=== PATIENT | female | born 1985 | race Caucasian/White ===

== ENCOUNTER → 2020-05-31 | Outpatient (CLI) | payer OTHER ==
[~2020-05-31] MED LIST: CITA20TA6 PO; LISI10TA2 PO; METO50TA6 PO
== END ==
LOC: SURGPAT 12:12
PROVIDERS: ATTEND Obstetrics & Gynecology
DX: Z01.812 Encounter for preprocedural laboratory examination (principal); Z20.828 Contact with and (suspected) exposure to other viral communicable diseases
CPT/HCPCS: U0003

== ENCOUNTER 2020-06-05 06:09 | Observation (INO) | payer OTHER ==
[2020-06-05] VITALS (14 sets, daily range): BP systolic 104–128; BP diastolic 56–93
[~2020-06-05] VITALS: Ht 170.2 cm; Wt 91.8 kg
[~2020-06-05 06:09] MED LIST changes: +BUPIVACAINE-EPI 0.25%-1:200000 MPF 30 ML VIAL. INJ ONE; +ceFAZolin SODIUM IV Push 1 GM VIAL. IVP PRN
[2020-06-05] MEDS ORDERED: SCOPOLAMINE 1.5MG PATCH. TD ONE (06:30)
[2020-06-05] MEDS ORDERED: PROCHLORPERAZINE 10 MG/2 ML VIAL. IV PRN (07:00)
[2020-06-05] MEDS ORDERED: IV RINGERS,LACTATED 1000ML 1,000 ML IV SCH (07:00)
[2020-06-05] MEDS ORDERED: HYDROmorphone 2 MG/ML VIAL IV PRN (07:00)
[2020-06-05] MEDS ORDERED: ONDANSETRON PF 4 MG/2 ML VIAL. IV PRN ×2 (07:00→10:15)
[2020-06-05] MEDS ORDERED: LIDOCAINE 1% PF 2 ML VIAL. ID PRN (07:00)
[2020-06-05] MEDS ORDERED: fentaNYL PF VIAL 100 MCG/2 ML VIAL IV PRN (07:00)
[2020-06-05] MEDS ORDERED: INDIGOTINDISULFONATE SODIUM 40 MG/5 ML AMPUL. ONE (07:09)
[2020-06-05] MEDS ORDERED: ESTROGENS, CONJ VAGINAL CREAM 30GM TUBE. ONE (07:09)
[2020-06-05] MEDS ORDERED: PROPOFOL 10 MG/ML (20ML) VIAL. IV ONE ×2 (07:13→09:34)
[2020-06-05] MEDS ORDERED: LIDOCAINE 1% PF 5 ML VIAL. ONE (07:13)
[2020-06-05] MEDS ORDERED: ROCURONIUM 100 MG/10 ML VIAL. ONE (07:13)
[2020-06-05] MEDS ORDERED: fentaNYL PF VIAL 100 MCG/2 ML VIAL ONE ×3 (07:13→10:34)
[2020-06-05] MEDS ORDERED: MIDAZOLAM HCL/PF 2 MG/2 ML VIAL. ONE (07:13)
[2020-06-05] MEDS ORDERED: diphenhydrAMINE 50 MG/ML VIAL ONE (07:15)
[2020-06-05] MEDS ORDERED: FAMOTIDINE 20 MG/2 ML VIAL ONE (07:15)
[2020-06-05] MEDS ORDERED: NEOSTIGMINE METHYLSULFATE 5 MG/5 ML SYRINGE. ONE (09:07)
--- NOTE | 2020-06-05 10:05 | PDOC ---
BRIEF OPERATIVE NOTE Date: Jun 05, 2020 Pre-Op Diagnosis Pelvic pain, endometriosis Post-Op Diagnosis same Procedure Performed LAVH/RSO/left salpingectomy/vapo endometriosis left sidewall above ureter Surgeon Dr. Varner Cutter Inspector MARY Hampton Anesthesiologist Dr. Savage Anesthesia Type: General Blood Loss 200cc IV Fluid 750cc Urine Output 150cc clear via sanabria Specimens Obtained cervix, uterus, right tube and ovary, left tube Findings mild adhesive disease, endometriosis on left sidewall above ureter, mildly enlarged right ovary, mildly enlarged RV uterus Complications none Operative Note [id number] MARIS VARNER MD Jun 05, 2020 10:05
[2020-06-05] MEDS ORDERED: NALOXONE 0.4 MG/ML VIAL. IV PRN (10:15)
[2020-06-05] MEDS ORDERED: diphenhydrAMINE HCL 25 MG CAPSULE PO PRN (10:15)
[2020-06-05] MEDS ORDERED: ZOLPIDEM 5 MG TABLET. PO PRN (10:15)
[2020-06-05] MEDS ORDERED: 0.9 % SODIUM CHLORIDE 10 ML DISP.SYRIN. IV PRN (10:15)
[2020-06-05] MEDS ORDERED: MAG HYDROX/ALUMINUM HYD/SIMETH 30 ML ORAL.SUSP PO PRN (10:15)
[2020-06-05] MEDS ORDERED: CALCIUM CARBONATE 500 MG TAB.CHEW PO PRN (10:15)
[2020-06-05] MEDS ORDERED: diphenhydrAMINE 50 MG/ML VIAL IV PRN (10:15)
[2020-06-05] MEDS ORDERED: LACTULOSE 20 GM/30 ML SOLUTION. PO PRN (10:15)
[2020-06-05] MEDS ORDERED: MAGNESIUM HYDROXIDE 2,400 MG/30 ML ORAL.SUSP. PO PRN (10:15)
[2020-06-05] MEDS: fentaNYL PF VIAL 100 MCG/2 ML VIAL IV PRN ×2 (10:37→12:04)
--- NOTE | 2020-06-05 11:05 | OP ---
DATE OF SURGERY: 06/05/2020 PREOPERATIVE DIAGNOSIS: Known endometriosis and pelvic pain, especially right-sided. POSTOPERATIVE DIAGNOSIS: Known endometriosis and pelvic pain, especially right-sided. PROCEDURE: Laparoscopic-assisted vaginal hysterectomy, right salpingo-oophorectomy, left salpingectomy and vaporization of endometriosis on the left sidewall above the ureter. SURGEON: Maris Varner MD RESEARCH AIDE: MARY Charles. ANESTHESIA: General. ANESTHESIOLOGIST: Dr. Savage. ESTIMATED BLOOD LOSS: 200 mL. URINE OUTPUT: 150 mL, clear via Chris catheter. INTRAVENOUS FLUIDS: 750 mL of Crystalloid. SPECIMENS: Cervix, uterus, right tube and ovary and left tube. FINDINGS: She had mild adhesive disease, endometriosis on the left sidewall above the ureter and a mildly enlarged right ovary and a mildly enlarged retroverted uterus. COMPLICATIONS: None. DESCRIPTION OF PROCEDURE: This patient was taken to the operating room where general anesthesia was placed. The patient was placed in dorsal lithotomy position in Tu stirrups. The patient's abdomen and vagina were both prepped and draped in the normal sterile fashion and a Chris catheter had been inserted under sterile technique. Upon my arrival, a timeout was performed. Once everyone agreed on the patient, the site, the procedure, the antibiotics, the procedure was initiated. A bivalve speculum was placed in the patient's vagina. A single-tooth tenaculum was used to grasp the anterior lip of the cervix, 0.25% Marcaine with epinephrine was used to circumferentially inject around the cervix for both hemodissection and hemostatic purposes later, 12 mL were used here. At this point, top gloves were discarded and changed and attention was turned to the abdomen. Attention was then turned to the abdomen where a small infraumbilical skin incision was made with the scalpel over the existing scar. Prior to putting the incision and it was injected with again that 0.25% Marcaine with epinephrine. Incision was made. The Visiport was used to directly enter the abdominal cavity. Opening patient pressure was 3-4 mmHg. Carbon dioxide gas was used to then appropriately insufflate the abdominal cavity to maintain a pressure of 15 mmHg. The patient was placed in Trendelenburg. Right and left lower quadrant ports were placed. The right side already had an incision. So it was clear on the inside, so local was used and a small incision was made. The disposable 5 mm atraumatic trocar was placed under direct visualization on the right over this one. The left one transilluminating the abdominal wall, finding an area clear of any vasculature, injecting making a small incision and then placing the trocar in under direct visualization, 4-5 mL of air was used in this cuff. Then, the camera was moved laterally. The umbilical and the right lower quadrant ports were also insufflated with 4-5 mL of air in the trocar cuff. Once this was done and they were in good placement, an initial inspection of the abdomen revealed a normal right upper quadrant, mild scarring on the right lower quadrant where the appendix was, mild scarring in the left lower quadrant of the bowel above the IP ligament. She did have a large endometrial implant on the left sidewall, but it was above the left ureter and could clearly be seen. So the monopolar hook was used to cauterize this lesion and brown fluid did come out of the endometrial implant that the ureter could be seen peristalsing beneath it. At this point, the left tube and ovary were elevated. She wished to retain her left ovary. So, going above the ovary, below the tube, doing a salpingectomy with her prior tubal ligation. The distal segment of the tube did detach and it was pulled out separately. Then, crossing the left uteroovarian pedicle, cauterizing and cutting, again leaving the left ovary per patient request and going through the left round ligament. The right side, the right tube and ovary were elevated, finding the ureter coursing low in the pelvis, very clearly staying high on the infundibulopelvic ligament under the ovary, taking the right ovary where all her pain as per patient request. Cauterizing and cutting with the LigaSure, going over and going through the right round ligament as well. The uterus was pushed cephalad to the head. The atraumatic graspers were used to gently elevate the bladder flap. The [place] on was used to elevate the bladder and then the monopolar hook was used to sharply incise and create the bladder flap sharply and then it was gently pulled down. Once it was down, the uterine vessels were obtained on both sides and then staying inside that pedicle going down through the cardinal and broad ligaments with the LigaSure, on both sides this was done. Making sure the bladder was down all the way. The posterior area was clear. The bladder came down nicely. Everything was skeletonized on this side, staying inside that pedicle of the uterine vessels and the uterus was completely free and blanched, so everything was removed from the abdomen and attention was turned vaginally. The single tooth and the Valtchev were removed. A weighted speculum was placed in the patient's vagina. Thyroid Daksha clamps were placed on the anterior and posterior lips of the cervix respectively. A scalpel was used to make a circumferential incision in the cervix. Open Ray-Michoacano 4 x 4 was used to gently push up the anterior bladder peritoneum. The cervix was elevated and the posterior cul-de-sac was sharply entered with the curved Logan scissors. A #0 Vicryl stitch was used to secure the posterior peritoneum here to the vaginal cuff, was tagged with a curved Norma clamp. The needle was cut and passed off. The short weighted speculum was removed and replaced with the long weighted Carroll speculum in the posterior cul-de-sac. Curved Jodi clamps x 2 were placed on the patient's left uterosacral ligament where they were doubly clamped with curved Heaneys, cut with curved Logan scissors and suture ligated x 2 with 0 Vicryl. Second one was taken through the vaginal cuff securing uterosacral ligament to the vaginal cuff, tagged with a straight Norma clamp and the needle was cut and passed off. This was done exactly the same on the left side, double clamping the uterosacrals with curved Jodi's, cutting with curved Logan scissors, suture ligating x 2 with 0 Vicryl, taking the second one through the vaginal cuff, tagging it with a straight Norma clamp, cutting and passing the needle off. Prior to doing the right uterosacral, I was able to get in anteriorly and put the curved Jase in anteriorly and I pulled that open Ray-Michoacano 4 x 4 out and we were in and once we did this, I was able to get across the whole way. So, a right angle clamp just to delineate the pedicle on the right side that was left and the vaginal LigaSure was used to cauterize and cut the remaining pedicle on the right side. The entire right side was free at this point. This was done exactly the same on the left, taking the right angle clamp around the remaining pedicle to show it and then using the vaginal LigaSure to cauterize and cut the remaining pedicle. Once this was done, the cervix, uterus, right tube and ovary were delivered in total, remember the left tube had already been removed and pulled out separately. Once this was done, a sponge stick was used to examine the pedicles. There was some bleeding on the left side that a burlisher was placed in with a #2-0 Vicryl stitch with excellent results. The remaining pedicles looked hemostatic, all the clots were cleared from the posterior cul-de-sac. The long Carroll speculum was removed and replaced with the short weighted vaginal speculum. Everything appeared to be hemostatic at this point, so the long Allis was used to grasp the anterior bladder peritoneum and 2-0 Vicryl was taken through the anterior bladder peritoneum, left uterosacral ligament, posterior peritoneum and right uterosacral ligament, thus closing the peritoneum in a pursestring like fashion. Once this was done, the right and left uterosacral tags were clipped as well. A full length 2-0 Vicryl was obtained and the cuff was closed in an anterior to posterior running locked fashion and tied to the posterior cuff. An interrupted stitch was just placed in the middle for hemostasis and security. Once this was done, sponge stick was used to examine the vaginal cuff and it was completely dry. At this point, all instruments had been counted x 2 by OR personnel and were correct. So, all gloves were discarded and changed and attention was turned back above for a second look. Gas was reinsufflated. Lights were dimmed. The patient was placed back in Trendelenburg. Copious irrigation revealed hemostasis. Tisseel was placed over the pedicles with excellent results. There was nothing pulling in the posterior cul-de-sac or either of the pericolic right or left pericolic gutters, everything was dry. So, the gas was released from the abdomen. The right and left lower quadrant trocar cuffs were deflated and taken out under direct visualization. These too were hemostatic. Gas was released from the umbilical port. One last look did reveal hemostasis in the cul-de-sac, so once the gas was out, it was removed as well. All three port sites were closed with 4-0 nylon at the skin. The patient was awakened from anesthesia and is currently being brought to recovery room in stable condition. MARIS VARNER MD DR: JESSICA/reinier JOB#: [id number] / [id number]
[2020-06-05] MEDS: IBUPROFEN 400 MG TABLET. PO PRN ×2 (13:25→21:28)
[2020-06-05] MEDS: HYDROcodone/APAP 5/325MG 1 TAB TABLET PO PRN ×3 (13:25→21:28)
[2020-06-05] MEDS: SIMETHICONE 80 MG TAB.CHEW PO PRN ×2 (13:37→14:03)
--- NOTE | 2020-06-05 16:35 | NUR ---
Pt voided 100c urine but felt like she didn't empty her bladder. Bladder scan done and pt had 192 ml in bladder. Will continue to monitor.
[2020-06-06] MEDS: HYDROcodone/APAP 5/325MG 1 TAB TABLET PO PRN ×2 (02:10→08:23)
[2020-06-06 02:22] VITALS: BP 100/60
[2020-06-06 06:23] VITALS: BP 108/70
[2020-06-06 06:47] LABS: CALCIUM 8.8 mg/dL (8.5-10.1); GFR 63.9; POTASSIUM 4.2 mmol/L (3.5-5.1)
[2020-06-06] MEDS: IBUPROFEN 400 MG TABLET. PO PRN (07:22)
[2020-06-06 07:45] VITALS: BP 122/68
--- NOTE | 2020-06-06 08:08 | PDOC ---
SURGICAL PROGRESS NOTE DATE: 06/06/20 TIME: 07:51 Subjective Doing well without complaints. Voiding, tolerating regular diet and ambulating well. Wants go home. Just mildly sore Vital Signs Vital Signs Date Time Temp Pulse Resp B/P (MAP) Pulse Ox O2 Delivery O2 Flow Rate FiO2 06/06/20 06:23 97.6 66 16 108/70 (83) 97 97.6 06/06/20 03:10 Room Air 06/06/20 02:10 8.0 I&O Intake and Output 06/06/20 07:00 Intake Total 2290 ml Output Total 1400 ml Balance 890 ml Intake Oral 640 ml IV Total 1650 ml Output Urine Total 1200 ml Estimated Blood Loss 200 ml PATIENT HAS A VITALE: No General: Alert, Oriented X3, Cooperative, No acute distress HEENT: Atraumatic Heart: Regular rate Abdomen: Soft, No tenderness, Other (port sites c/d/i) Extremities: No clubbing, No cyanosis, No edema, No tenderness/swelling Neuro: Normal speech Psych/Mental Status: Mental status NL, Mood NL Labs Laboratory Tests Test 06/05/20 06:21 06/06/20 06:05 Bedside Urine HCG, Qualitative Hcg negative (Negative) Hematocrit 34.5 % (36.0-47.0) Sodium Level 138 mmol/L (136-145) Potassium Level 4.2 mmol/L (3.5-5.1) Chloride Level 103 mmol/L (98-107) Carbon Dioxide Level 27 mmol/L (21-32) Anion Gap 8 (6-14) Blood Urea Nitrogen 12 mg/dL (7-20) Creatinine 1.0 mg/dL (0.6-1.0) Estimated GFR (Cockcroft-Gault) 63.9 Glucose Level 83 mg/dL (70-99) Calcium Level 8.8 mg/dL (8.5-10.1) Laboratory Tests Test 06/06/20 06:05 Hematocrit 34.5 % (36.0-47.0) Sodium Level 138 mmol/L (136-145) Potassium Level 4.2 mmol/L (3.5-5.1) Chloride Level 103 mmol/L (98-107) Carbon Dioxide Level 27 mmol/L (21-32) Anion Gap 8 (6-14) Blood Urea Nitrogen 12 mg/dL (7-20) Creatinine 1.0 mg/dL (0.6-1.0) Estimated GFR (Cockcroft-Gault) 63.9 Glucose Level 83 mg/dL (70-99) Calcium Level 8.8 mg/dL (8.5-10.1) I have reviewed the following labs, vitals, nursing Cardiovascular: No pertinent hx Pulmonary: No pertinent hx GI: No pertinent hx Heme/Onc: No pertinent hx Assessment/Plan POD#1 s/p LAVH/RSO/left salpingectomy/vapo endometriosis Routine PO care d/c to home later today NPV x 6 weeks light/limited activity x 2 weeks Pain med written ok for OTC ibuprofen as needed also keep scheduled follow up with me in one week Call or return sooner for any other questions or concerns not limited to but including pain unrelieved with pain meds, increased or unexplained vag bleeding, T>100.4 Justicifation of Admission Dx: Justifications for Admission: Justification of Admission Dx: Yes Comments: surgery MARIS TEJADA MD Jun 06, 2020 08:08
--- NOTE | 2020-06-06 08:10 | PDOC3 ---
Discharge Summary Visit Information Date of Admission: Jun 05, 2020 Date of Discharge: Jun 06, 2020 Final Diagnosis pelvic pain, endometriosis Brief Hospital Course Allergies Allergies Coded Allergies Type Severity Reaction Last Updated Verified chlorhexidine Allergy Intermediate Rash 06/05/20 Yes morphine Allergy Intermediate SHORTNESS OF BREATH 06/05/20 Yes povidone-iodine Allergy Intermediate Rash 06/05/20 Yes soap Allergy Intermediate Rash 06/05/20 Yes Vital Signs Vital Signs Date Time Temp Pulse Resp B/P (MAP) Pulse Ox O2 Delivery O2 Flow Rate FiO2 06/06/20 06:23 97.6 66 16 108/70 (83) 97 97.6 06/06/20 03:10 Room Air 06/06/20 02:10 8.0 Lab Results Laboratory Tests Test 06/05/20 06:21 06/06/20 06:05 Bedside Urine HCG, Qualitative Hcg negative (Negative) Hematocrit 34.5 % (36.0-47.0) Sodium Level 138 mmol/L (136-145) Potassium Level 4.2 mmol/L (3.5-5.1) Chloride Level 103 mmol/L (98-107) Carbon Dioxide Level 27 mmol/L (21-32) Anion Gap 8 (6-14) Blood Urea Nitrogen 12 mg/dL (7-20) Creatinine 1.0 mg/dL (0.6-1.0) Estimated GFR (Cockcroft-Gault) 63.9 Glucose Level 83 mg/dL (70-99) Calcium Level 8.8 mg/dL (8.5-10.1) Laboratory Tests Test 06/06/20 06:05 Hematocrit 34.5 % (36.0-47.0) Sodium Level 138 mmol/L (136-145) Potassium Level 4.2 mmol/L (3.5-5.1) Chloride Level 103 mmol/L (98-107) Carbon Dioxide Level 27 mmol/L (21-32) Anion Gap 8 (6-14) Blood Urea Nitrogen 12 mg/dL (7-20) Creatinine 1.0 mg/dL (0.6-1.0) Estimated GFR (Cockcroft-Gault) 63.9 Glucose Level 83 mg/dL (70-99) Calcium Level 8.8 mg/dL (8.5-10.1) Brief Hospital Course Ms. Garland is a 34 old female who presented with endometriosis and pelvic pain desiring definitive therapy. She underwent LAVH/RSO/left salpingectomy and vapo endometriosis yesterday. Has had an unremarkable postoperative course. Voiding without catheter, tolerating PO and ambulating well. AFVSS desiring to go home today, scant VB Assessment Assessment POD#1 s/p LAVH/RSO/left salpingectomy/vapo endometriosis Routine PO care d/c to home later today NPV x 6 weeks light/limited activity x 2 weeks Pain med written ok for OTC ibuprofen as needed also keep scheduled follow up with me in one week Call or return sooner for any other questions or concerns not limited to but including pain unrelieved with pain meds, increased or unexplained vag bleeding, T>100.4 Discharge Information Condition at Discharge: Stable Follow Up: Weeks Disposition/Orders: D/C to Home Scheduled Citalopram Hydrobromide (Citalopram Hbr) 20 Mg Tablet, 20 MG PO DAILY for HS, (Reported) Entered as Reported by: ESME ARENAS on 05/31/201302 Last Taken: Unknown Dose on 06/04/20 Last Action: Last Taken Edited on 06/05/20623 by MARYLIN MCKEON Lisinopril (Lisinopril) 10 Mg Tablet, 10 MG PO DAILY for FOR HYPERTENSION, #30 Ref 0 (Reported) Entered as Reported by: ESME ARENAS on 05/31/201302 Last Taken: Unknown Dose on 06/04/20 Last Action: Last Taken Edited on 06/05/20623 by MARYLIN MCKEON Metoprolol Tartrate (Metoprolol Tartrate) 50 Mg Tablet, 50 MG PO DAILY for FOR HYPERTENSION, #60 Ref 0 (Reported) Entered as Reported by: ESME ARENAS on 05/31/201302 Last Taken: Unknown Dose on 06/04/20 1800 Last Action: Last Taken Edited on 06/05/20623 by MARYLIN MCKEON Patient Instructions Patient Instructions POD#1 s/p LAVH/RSO/left salpingectomy/vapo endometriosis Routine PO care d/c to home later today NPV x 6 weeks light/limited activity x 2 weeks Pain med written ok for OTC ibuprofen as needed also keep scheduled follow up with me in one week Call or return sooner for any other questions or concerns not limited to but including pain unrelieved with pain meds, increased or unexplained vag bleeding, T>100.4 Justicifation of Admission Dx: Justifications for Admission: Justification of Admission Dx: Yes MARIS TEJADA MD Jun 06, 2020 08:10
--- NOTE | 2020-06-06 09:23 | NUR ---
dismissed to in car amb per pt request. Home care instructions with appt with Dr Varner made for next wed and prescriptions given by at office. Stable on feet at 0920
--- NOTE | 2020-06-07 18:08 | PATHOLOGY ---
[facility] Accession Number: [id number] . 01 Material submitted: . uterus - UTERUS, CERVIX, RIGHT AND LEFT FALLOPIAN TUBES, AND RIGHT OVARY. Modifiers: bilateral, right . 01 Clinical history: . ENDOMETRIOSIS, PELVIC PAIN . 02 Diagnosis: Uterus with attached right fallopian tube and ovary and detached left fallopian tube, laparoscopic assisted vaginal hysterectomy with right salpingo-oophorectomy and left salpingectomy: - Chronic endocervicitis, focal. - Small nabothian cyst, cervix. - Small scarred down endometrial cavity with residual attenuated atrophic endometrium. - Mild myometrial hypertrophy (weight 104 grams). - Right paratubal cysts. - Left tubal endometriosis, focal. - Cystic follicles of right ovary, multiple. (JPM:gladys; 06/07/2020) [facility] 06/07/2020 1749 Local . 02 Comment: There is no atypia or evidence of malignancy. (LILIANAM:gladys; 06/07/2020) . 02 Electronically signed: . Fan Brice MD, Pathologist NPI- [id number] . 01 Gross description: . Received in formalin labeled "Aneta Garland, uterus, cervix, right fallopian tube and ovary, left fallopian tube" is an intact hysterectomy specimen with attached right fallopian tube and ovary, and detached left fallopian tube. The uterus weighs 104 g and measures 10.2 cm from fundus to cervix, 6.3 cm from cornu to cornu, and 4.3 cm from anterior to posterior. The serosa is pink-brown and smooth. The exocervix is focally hemorrhagic and displays a slitlike cervical os measuring 1.5 cm. The specimen is opened to reveal a 2.8 x 1.5 cm endometrial cavity and a 3.2 x 0.5 cm endocervical canal. The endometrial cavity appears fibrotic and stellate, possibly consistent with prior ablation procedure. Upon sectioning, scant endometrium is present, measuring 0.1 cm in thickness. The myometrium measures 2.2 cm in thickness. No leiomyomata or polyps are identified. The right fallopian tube is fimbriated and measures 7.3 cm in length and 0.8 cm in diameter. The external surface is pink-brown and smooth and the fallopian tube is sectioned to reveal a pinpoint lumen. The right ovary weighs 21 g and measures 4.7 x 3.6 x 3.4 cm. The external surface is red-brown and smooth and the ovary is sectioned to reveal multiple simple cysts ranging from 0.3-1.3 cm in greatest dimension. The left fallopian tube is fimbriated and measures 3.6 cm in length and 0.7 cm in diameter. The external surface is pink-brown and smooth and the fallopian tube is sectioned to reveal a pinpoint lumen. [employer] sections of the specimen are submitted as follows: A1 12:00 cervix A2 6:00 cervix A3 anterior uterus A4 posterior uterus A5 right fallopian tube A6-A7 right ovary A8 left fallopian tube ([facility]; 06/06/2020) [facility] 06/06/2020 1200 Local . 02 Pathologist provided ICD-10: N72, N88.8, N85.8, N85.00, N83.8, N80.9, N83.01 . 02 CPT . 027505 Specimen Comment: A courtesy copy of this report has been sent to [phone], [phone] Specimen Comment: 2030 Specimen Comment: Report sent to / DR RICO Performed at: 01 [facility] [address], [place] [id number] MD Gatito Martinez MD Phone: [phone] Performed at: 02 [facility] [address] [place], [place] [id number] MD Fan Brice MD Phone: [phone]
== END 2020-06-06 09:20 | disposition home or self-care (01) ==
LOC: SURG 06:09 → EDUNIT# 07:30 → 3 NORTH 10:10
PROVIDERS: ADMIT Obstetrics & Gynecology; ATTEND Obstetrics & Gynecology
DX: N85.2 Hypertrophy of uterus (principal); N83.8 Other noninflammatory disorders of ovary, fallopian tube and broad ligament; R10.2 Pelvic and perineal pain; Z98.51 Tubal ligation status
CPT/HCPCS: 36415; 58552; 80048; 81025; 85014; 86850; 86900; 86901; 96361; 96374; A4461; A7015; G0378; G0379; J0690; J1200; J2250; J2704; J2710; J3010; J3480; J3490; J7030; J7120; 88307